=== PATIENT | male | born 2000 | race Caucasian/White ===

== ENCOUNTER 2022-04-24 19:56 | Emergency (ER) | payer SELFPAY ==
[~2022-04-24] VITALS: Ht 167.6 cm; Wt 84.4 kg
[2022-04-24 20:37] VITALS: BP 126/55
--- NOTE | 2022-04-24 22:16 | NUR ---
called -no show in lobby or outside.
--- NOTE | 2022-04-24 22:36 | NUR ---
Called second time- no show lobby or outside.
--- NOTE | 2022-04-24 23:05 | NUR ---
PATIENT LEFT WITHOUT BEING SEEN BY DR. MOORE. NO FURTHER CARE PROVIDED FOR PATIENT.
--- NOTE | 2022-04-24 23:05 | NUR ---
Called thrid time, no show in lobby or outside.
== END 2022-04-24 22:16 | disposition left against medical advice (07) ==
LOC: MED 19:56
DX: R10.13 Epigastric pain (principal); R11.2 Nausea with vomiting, unspecified; Z53.21 Procedure and treatment not carried out due to patient leaving prior to being seen by health care provider